=== PATIENT | female | born 1940 | race Caucasian/White ===

== ENCOUNTER 2024-07-07 21:00 | Inpatient (IN) | payer OTHER, SELFPAY ==
[2024-07-06] VITALS (8 sets, daily range): BP systolic 124–157; BP diastolic 79–97; BMI 22.8
--- NOTE | 2024-07-06 19:46 | ED.CVA ---
History of Present Illness
<Bjorn Blackman MD, Resident - Last Filed: 07/06/24 22:18>
General
Chief Complaint: CVA/TIA Symptoms
Source: patient and family
Time Seen by Provider: 07/06/24 19:29
Nursing documentation reviewed up to this point in time: agreed with
Onset of Stroke Symptoms
Onset of symptoms known: Yes
Date of onset of symptoms: 07/06/24
Time of onset of symptoms: 16:00
Time pt last seen normal is known: No
Date last time pt seen normal: 07/06/24
Travel History
Have you traveled to any high risk areas for coronavirus over the past 14 days?: Yes
Have you had any contact with someone who has COVID-19?: No
Do you have any symptoms of coronavirus? Fever > 100 degrees, chills, cough, shortness of breath, sore throat, loss of taste or smell, muscle aches, or headache?: No
Is patient interested in receiving COVID-19 vaccine if eligible?: No
History of Present Illness
History of Present Illness:
84-year-old female with PMH of benign essential hypertension, subclavian steal syndrome, hyperlipidemia, atherosclerotic heart disease, who presented to the emergency department with family due to word finding, right facial droop and slurred speech
that started when she woke up at 4 PM this afternoon. Family reports that patient had a long sleep and woke up with the symptoms. She was in [place] for 4 weeks and flew in yesterday after 4 hours flights. She denies chest pain, shortness of
breath, fever, chills, abdominal pain, nausea, vomiting, diarrhea. She denies any sick contacts, fever or chills.
Past History
<Bjorn Blackman MD, Resident - Last Filed: 07/06/24 22:18>
Past History
ED Past Medical History: HTN and Hypercholesterolemia
Social History
Tobacco: Non-smoker
Alcohol: None
Drug: None
Living: with family
Review of Systems
<Bjorn Blackman MD, Resident - Last Filed: 07/06/24 22:18>
Review of Systems
All Other Systems: ROS reviewed and negative except as documented in HPI and ROS
Phy Exam
<Bjorn Blackman MD, Resident - Last Filed: 07/06/24 22:18>
Physical Exam
Physical Exam:
GENERAL: Alert and oriented x 3, NAD. Afebrile
HEAD: NC/AT
OROPHARYNX: no exudate or ulcers.
EYE: pupils equal and reactive extraocular muscles
NECK: Supple, no significant adenopathy.
CARDIAC: Regular rate and rhythm without any obvious murmurs.
LUNGS: Normal breath sounds,normal-no rhonchi. Not bronchospastic.
ABDOMEN: Soft, NT, ND, no peritoneal signs.
NEUROLOGICAL: Alert and oriented x 3. No focal neurological deficit.
SKIN: Warm and dry, no rash or lesion, no discoloration, skin intact.
MUSCULOSKELETAL: Full range of motion of extremities.
LYMPHATIC:No lymph nodes on his neck or supraclavicular area.
PSYCH: Normal and appropriate interaction.
Neurological Exam
Neurological Exam: alert, oriented x3, no motor deficits and facial droop (right)
NIH Stroke Score
Level of Consciousness: 0 - Alert
LOC questions: 0-Answers both correctly
LOC Commands: 0-Performs both correctly
Best Gaze: 0-Normal
Visual Cuellar: 0=Normal, no visual loss
Facial palsy: 1=Minor paralysis
Motor - Right Arm: 0=No drift 10 seconds
Motor - Left Arm: 0=No drift 10 seconds
Motor - Right Le-No drift 5 seconds
Motor - Left Le-No drift 5 seconds
Limb Ataxia: 0-Absent
Sensation: 0-Normal
Best Language: 0-No aphasia
Dysarthria: 1-Mild slurring
Extinction and Inattention: 0-No abnormality
Total Score:: 2
Cerebellar
Cerebellar Function: normal heel to coley
Musculoskeletal Exam
Musculoskeletal Exam: full ROM and no edema
Scores
<Bjorn Blackman MD, Resident - Last Filed: 07/06/24 22:18>
NIH Stroke Score
Level of Consciousness: 0 - Alert
LOC Questions: 0-Answers both correctly
LOC Commands: 0-Performs both correctly
Best Horizontal Gaze: 0-Normal
Visual Cuellra: 0=Normal, no visual loss
Facial Palsy: 1=Minor paralysis
Motor - Right Arm: 0=No drift 10 seconds
Motor - Left Arm: 0=No drift 10 seconds
Motor - Right Le-No drift 5 seconds
Motor - Left Le-No drift 5 seconds
Limb Ataxia: 0-Absent
Sensation: 0-Normal
Best Language: 0-No aphasia
Dysarthria: 1-Mild slurring
Extinction and Inattention: 0-No abnormality
Total Score:: 2
Stroke Thrombolytic & IAT <6 hours
IAT <6 Hr Inclusion Criteria: Less than or equal to 6 hrs from onset/last seen normal, NIHSS greater than or equal 6 and Age 18 or greater
Course
<Bjorn Blackman MD, Resident - Last Filed: 07/06/24 22:18>
Orders/Labs/Results
Orders:
Orders
07/06/24 19:31
Electrocardiogram (*1) Urgent
Reason for Study: Other
Other Reason for Exam: Possible Stroke
Bedside Glucose- Treatment ONCE
Cardiac Monitoring- Treatment ONCE
EKG- Treatment ONCE
IV Insert/Care/Rem.- Treatment PRN
Vital Signs As Directed
Frequency: Other
Weight As Directed
Frequency: Once
Comment: ZERO STRETCHER SCALE FOR ACCURATE WEIGHT
O2 Therapy [RESP] Urgent
Titrate/Wean O2 to maintain O2 sat greater than (%): 93
Special Instructions: MAINTAIN CONTINUOUS O2 SATS > OR = 93%
07/06/24 19:32
CT HEAD STROKE ALERT W/o Cont Urgent
Reason For Exam: slurred speech
07/06/24 19:33
Complete Blood Count/With Diff Urgent
Comprehensive Metabolic Panel Urgent
PTT Urgent
Prothrombin Time Urgent
Troponin I Urgent
Urinalysis Reflex To Culture Urgent
Date Specimen was Collected: 07/06/24
Time Specimen was Collected: 19:31
Urine Microscopic Reflex Cult Urgent
Urine Culture Urgent
CHARITY Source: U
Specimen Description:
Date Specimen was Collected: 07/06/24
Time Specimen was Collected: 19:31
07/06/24 19:34
CT HEAD/NECK ANG STROKE ALERT Urgent
Comment:
Reason For Exam: acva
07/06/24 19:48
COVID-19 Antigen Urgent
Source: Nasal Swab
07/06/24 20:04
CT Brain Perfusion Urgent
Comment:
Reason For Exam: right facial droop, slurred speech, cva
07/06/24 21:25
Aspirin 325 mg PO NOW STA
07/06/24 21:59
Admit/Transfer Patient As Directed
Co-Sign Provider:
Level of Care: Observation services
Assign to:: Telemetry
Physician / Group: Percy
Diagnosis: Facial Droop
Reason for Telemetry: CVA/TIA
Date to Stop Telemetry: 07/09/24
Time to Stop Telemetry: 11:00
PRN Pain Medication Management As Directed
May give lesser potent ordered pain med per pt: Yes
preference::
Protocol:: Medication orders for pain may be administered in a
manner that supports deferring to patient preference
when the pt is:
- Requesting an ordered lesser potent pain medication.
Least to most potent pain medications are defined
as: acetaminophen < NSAID < tramadol < opioids
(morphine, oxycodone, hydromorphone).
- Requesting a lesser dose of the same medication IF
ORDERED.
- Requesting a less intrusive route of administration
if both routes are prescribed by the provider (PO <
IV).
07/06/24 22:04
Code Status As Directed
Resuscitation Status: Full Code
07/06/24 22:15
0.9% Sodium Chloride 1000 ml [Nss] 1,000 ml IV 100 mls/hr
07/09/24 11:00
DC Protocol for Telemetry ONCE
Abnormal Lab Results
07/06/24
19:33
Hct 47.9 H %
(37.0-47.0)
MPV 11.2 H fL
(7.4-10.4)
Absolute Monos (auto) 1.2 H 10^3/uL
(0.1-0.6)
Lymphocytes % 18.4 L %
(20.5-51.1)
Monocytes % 12.7 H %
(1.7-9.3)
APTT 37.7 H Sec
(23.4-35.0)
BUN 25 H mg/dl
(7-17)
Creatinine 1.3 H mg/dL
(0.6-1.0)
Glucose 110 H mg/dl
(70-99)
Calcium 10.5 H mg/dl
(8.4-10.2)
Leukocyte Esterase Rfl 1+ A
(Negative)
Urine Bacteria (Reflex) Few A
(Negative)
Urine Albumin (Reflex) 2+ A
(Neg - Trace)
07/06/24 19:33
07/06/24 19:33
Vital Signs
Initial and Last Documented VS:
Initial Vital Signs
Temp Pulse Resp BP Pulse Ox
97 F 73 20 157/97 96
07/06/24 19:14 07/06/24 19:14 07/06/24 19:14 07/06/24 19:14 07/06/24 19:14
Last Documented Vital Signs
Temp Pulse Resp BP Pulse Ox
97 F 73 20 157/97 98
07/06/24 19:14 07/06/24 19:14 07/06/24 19:14 07/06/24 19:14 07/06/24 19:14
<Lonny Toney, DO - Last Filed: 07/06/24 20:13>
Orders/Labs/Results
Orders:
Orders
07/06/24 19:31
Electrocardiogram (*1) Urgent
Reason for Study: Other
Other Reason for Exam: Possible Stroke
Bedside Glucose- Treatment ONCE
Cardiac Monitoring- Treatment ONCE
EKG- Treatment ONCE
IV Insert/Care/Rem.- Treatment PRN
Vital Signs As Directed
Frequency: Other
Weight As Directed
Frequency: Once
Comment: ZERO STRETCHER SCALE FOR ACCURATE WEIGHT
O2 Therapy [RESP] Urgent
Titrate/Wean O2 to maintain O2 sat greater than (%): 93
Special Instructions: MAINTAIN CONTINUOUS O2 SATS > OR = 93%
07/06/24 19:32
CT HEAD STROKE ALERT W/o Cont Urgent
Reason For Exam: slurred speech
07/06/24 19:33
Complete Blood Count/With Diff Urgent
Comprehensive Metabolic Panel Urgent
PTT Urgent
Prothrombin Time Urgent
Troponin I Urgent
Urinalysis Reflex To Culture Urgent
Date Specimen was Collected: 07/06/24
Time Specimen was Collected: 19:31
Urine Microscopic Reflex Cult Urgent
Urine Culture Urgent
CHARITY Source: U
Specimen Description:
Date Specimen was Collected: 07/06/24
Time Specimen was Collected: 19:31
07/06/24 19:34
CT HEAD/NECK ANG STROKE ALERT Urgent
Comment:
Reason For Exam: acva
07/06/24 19:48
COVID-19 Antigen Urgent
Source: Nasal Swab
07/06/24 20:04
CT Brain Perfusion Urgent
Comment:
Reason For Exam: right facial droop, slurred speech, cva
07/06/24 21:25
Aspirin 325 mg PO NOW STA
07/06/24 21:59
Admit/Transfer Patient As Directed
Co-Sign Provider:
Level of Care: Observation services
Assign to:: Telemetry
Physician / Group: Percy
Diagnosis: Facial Droop
Reason for Telemetry: CVA/TIA
Date to Stop Telemetry: 07/09/24
Time to Stop Telemetry: 11:00
PRN Pain Medication Management As Directed
May give lesser potent ordered pain med per pt: Yes
preference::
Protocol:: Medication orders for pain may be administered in a
manner that supports deferring to patient preference
when the pt is:
- Requesting an ordered lesser potent pain medication.
Least to most potent pain medications are defined
as: acetaminophen < NSAID < tramadol < opioids
(morphine, oxycodone, hydromorphone).
- Requesting a lesser dose of the same medication IF
ORDERED.
- Requesting a less intrusive route of administration
if both routes are prescribed by the provider (PO <
IV).
07/06/24 22:04
Code Status As Directed
Resuscitation Status: Full Code
07/06/24 22:15
0.9% Sodium Chloride 1000 ml [Nss] 1,000 ml IV 100 mls/hr
07/09/24 11:00
DC Protocol for Telemetry ONCE
Abnormal Lab Results
07/06/24
19:33
Hct 47.9 H %
(37.0-47.0)
MPV 11.2 H fL
(7.4-10.4)
Absolute Monos (auto) 1.2 H 10^3/uL
(0.1-0.6)
Lymphocytes % 18.4 L %
(20.5-51.1)
Monocytes % 12.7 H %
(1.7-9.3)
APTT 37.7 H Sec
(23.4-35.0)
BUN 25 H mg/dl
(7-17)
Creatinine 1.3 H mg/dL
(0.6-1.0)
Glucose 110 H mg/dl
(70-99)
Calcium 10.5 H mg/dl
(8.4-10.2)
Leukocyte Esterase Rfl 1+ A
(Negative)
Urine Bacteria (Reflex) Few A
(Negative)
Urine Albumin (Reflex) 2+ A
(Neg - Trace)
07/06/24 19:33
07/06/24 19:33
Vital Signs
Initial and Last Documented VS:
Initial Vital Signs
Temp Pulse Resp BP Pulse Ox
97 F 73 20 157/97 96
07/06/24 19:14 07/06/24 19:14 07/06/24 19:14 07/06/24 19:14 07/06/24 19:14
Last Documented Vital Signs
Temp Pulse Resp BP Pulse Ox
97 F 73 20 157/97 98
07/06/24 19:14 07/06/24 19:14 07/06/24 19:14 07/06/24 19:14 07/06/24 19:14
<Bjorn Blackman MD, Resident - Last Filed: 07/06/24 22:18>
MDM/Problems Addressed
MDM/Problems Addressed:
84-year-old female who presented to the emergency department with family due to word finding difficulty, right facial drooping and slurred speech that started around 3 and half hours IN [facility]. Most likely etiologies include acute stroke, Ramsay's palsy.
Her last known normal is not clear given that she woke up from sleep with the symptoms. Noncontrast CT scanning of head, with CT angiography pending. We we will also get labs, urinalysis, coagulation studies, and EKG. Given that her last known
normal time is unclear we will call stroke alert. Will keep monitoring closely.
<Bjorn Blackman MD, Resident - Last Filed: 07/06/24 22:18>
*Radiology
Radiology exam reviewed: radiology read reviewed
*Pulse Oximetry
Patient hypoxic: no
*EKG
Interpreted by ED Provider?: Yes
EKG Intrepretation Date: 07/06/24
EKG Intrepretation Time: 19:31
Interpretation: normal
Comparison EKG: no comparison EKG present
Heart Rate: 79
Rate: normal
Rhythm: sinus
[place]: normal axis
Interval: normal interval
QRS Pattern: normal QRS
Ischemia: no ischemia
*Critical Care Note
Total Time (30-74mins, 75-104mins- exclusive of procedures): Not Applicable
<Bjorn Blackman MD, Resident - Last Filed: 07/06/24 22:18>
Update Note
Update Note:
Noncontrast CT scan of head negative for any intracranial abnormalities, but positive for severe chronic ischemic disease. Head and neck CTA positive for severe stenosis of proximal left subclavian artery and left vertebral artery occlusion. Brain
perfusion CT negative for hypoperfused brain penumbra with infarct. Given unclear patient's last known normal, will admit patient for further evaluation and management. Hospitalist service notified.
ED Attending Note
<Bjorn Blackman MD, Resident - Last Filed: 07/06/24 22:18>
-
Portions of this chart may have been created with voice recognition software.� Occasional wrong word or��sound alike� substitutions may have occurred due to the inherent limitations of voice recognition software.
<Lonny Toney DO - Last Filed: 07/06/24 20:13>
ED Attending Note
Patient seen and examined by attending physician: Yes
I performed a history and physical exam of patient and discussed management with resident, I reviewed resident's note and agree with documented findings and plan of care.: Yes
ED Attending Note:
Seen with resident examined independently 84-year-old female companied by her family wake up neurologic symptoms at 4 PM--- right facial droop with slurred speech and word finding difficulty moving all extremities without difficulty,
Discharge Plan
Departure
Patient Disposition: Admit
Date of Disposition: 07/06/24
Time of Disposition: 21:25
Admit to: Telemetry
Presentation/result/management discussed w/ accepting MD/DO: Hospitalist
Patient with high blood pressure during this ER visit?: Yes
Discharge Problem:
Acute CVA (cerebrovascular accident)
Prescriptions:
No Action
atorvastatin [Lipitor] 10 mg Tablet
10 mg PO QPM
amlodipine [Norvasc] 5 mg Tablet
5 mg PO DAILY
alprazolam [Xanax] 0.25 mg Tablet
0.25 mg PO DAILYPRN PRN (Reason: anixety)
pantoprazole [Protonix] 40 mg Tablet,Delayed Release (Dr/Ec)
40 mg PO DAILY
losartan 50 mg Tablet
50 mg PO BID
metoprolol tartrate [Lopressor] 50 mg Tablet
100 mg PO BID
anastrozole 1 mg Tablet
1 mg PO HS
cyanocobalamin (vitamin B-12) 1,000 mcg Tablet
1,000 mcg PO DAILY
aspirin 81 mg Tablet,Delayed Release (Dr/Ec)
81 mg PO DAILY
methimazole [Tapazole] 10 mg Tablet
10 mg PO Q48H
cholecalciferol (vitamin D3) [Vitamin D3] 50 mcg (2,000 unit) Capsule
50 mcg PO DAILY
magnesium oxide 400 mg magnesium Tablet
400 mg PO BID
Referrals:
Rimma Saravia DO [Family Provider] -
Interventions
Interventions:
*Risk Screen - Suicide Last Done: 07/06/24 19:14
*General Assessment Last Done: 07/06/24 19:30
*Neglect/Abuse Screening Last Done: 07/06/24 19:30
*ED COVID-19 Vaccine History Last Done: 07/06/24 19:30
ED- Pulmonary Assessment Last Done: 07/06/24 19:30
ED- Neurological Assessment Last Done: 07/06/24 19:30
ED-Female Genitourinary Assessment Last Done: 07/06/24 19:30
ED- Cardiac Assessment Last Done: 07/06/24 19:30
Discharge Date and Time
Print Language: DJIBOUTIAN
[2024-07-06 19:54] LABS: % Basophils 0.5 % (0-2); % Eosinophils 3.2 % (0-6); % Immature Granulocytes 0.3 % (0-0.5); % Lymphocytes 18.4 % (20.5-51.1); % Monocytes 12.7 % (1.7-9.3); % Neutrophils 64.9 % (42.2-75.2); Absolute Basophils 0.1 10^3/uL (0-0.2); Absolute Eosinophils 0.3 10^3/uL (0-0.7); Absolute Lymphocytes 1.8 10^3/uL (1.2-3.4); Absolute Monocytes 1.2 10^3/uL (0.1-0.6); Absolute Neutrophils 6.2 10^3/uL (1.4-6.5); Hematocrit 47.9 % (37.0-47.0); Hemoglobin 15.9 g/dL (12.0-16.0); Mean Corp Hgb Conc. 33.2 g/dL (33.0-37.0); Mean Corpuscular Hgb 29.9 pg (27.0-31.0); Mean Corpuscular Volume 90.2 fL (81.0-99.0); Mean Platelet Volume 11.2 fL (7.4-10.4); Nucleated Red Blood Cells % 0 %; Platelet Count 332 10^3/uL (130-400); Red Blood Cell Count 5.31 10^6/uL (4.20-5.40); Red Cell Dist. Width 13.7 % (11.5-14.5); White Blood Cell Count 9.6 10^3/uL (4.8-10.8)
[2024-07-06 19:55] LABS: Urine Albumin 2+ (Neg - Trace); Urine Bilirubin Negative (Negative); Urine Character Clear (Clear); Urine Color Yellow; Urine Glucose Negative (Negative); Urine Ketone Negative (Negative); Urine Leukocyte 1+ (Negative); Urine Nitrite Negative (Negative); Urine Occult Blood Negative (Negative); Urine Specific Gravity 1.005 (<1.030); Urine Urobilinogen Negative (Neg - 1+)
[2024-07-06 20:04] LABS: INR 0.84; PT 11.8 Sec (11.4-14.6)
[2024-07-06 20:05] LABS: APTT 37.7 Sec (23.4-35.0)
[2024-07-06 20:07] LABS: ALT (SGPT) 16 U/L (0-35); AST (SGOT) 33 U/L (14-36); Albumin 4.3 g/dl (3.5-5.0); Alkaline Phosphatase 125 U/L (38-126); Blood Urea Nitrogen 25 mg/dl (7-17); Calcium 10.5 mg/dl (8.4-10.2); Carbon Dioxide 27 mmol/L (22-30); Chloride 105 mmol/L (98-107); Estimated Creatinine Clearance 25 ml/min; Glucose 110 mg/dl (70-99); Potassium 4.4 mmol/L (3.5-5.1); Sodium 139 mmol/L (135-145); Total Bilirubin 0.9 mg/dl (0.2-1.3); Total Protein 7.5 g/dl (6.3-8.2); eGFR 41.06
[2024-07-06 20:19] LABS: Troponin I < 0.012 ng/ml
[2024-07-06 20:49] LABS: Urine Bacteria Few (Negative); Urine Red Blood Cell 0-2 /HPF (0-2)
--- NOTE | 2024-07-06 22:08 | HPS.HSE ---
Addendum entered and electronically signed by Atilio Greer DO 07/06/24 23:13:
Patient seen and examined independently. Agree with findings and plan as set forth by Mita Saleh PA-C.
Patient is an 84y F with PMH significant for ASCVD, hypertension and hyperthyroidism who presents to ED complaining of R facial droop that she noted this afternoon. Patient states that she felt well earlier in the day today. She took a long nap
and woke around 3-4PM and noted that her mouth felt strange. She spoke with son via phone who noted that lázaro germain sounded somewhat slurred / thick. Patient presented to the ED for evaluation and was noted to have significant R facial droop. No
extremity weakness or numbness. No vision changes or headache. No prior CVA.
Ass:
R Facial Droop, CVA / TIA
Renal Insufficiency - PEGGY v CKD
ASCVD
Benign Hypertension
Dyslipidemia
Hyperthyroidism
GERD
h/o Breast Cancer
Plan:
Admit for further evaluation and treatment.
Initial CT / CT perfusion unremarkable.
Several areas of stenosis noted on CTA - but no large vessel occlusion, etc.
MRI in AM.
Follow neuro exam overnight for any changes.
Continue DAPT for now.
Neurology eval in AM.
Continue current antihypertensive medication with holding parameters.
Original Note:
Family Physician
-
Family Physician: Rimma Saravia DO
Chief Complaint
-
Facial Droop
History of Present Illness
Patient is an 84 y/o female past medical history of peripheral arterial disease, hypertension, hyperlipidemia, and hyperthyroidism who presents with facial droop. Patient reports she was fine this morning at breakfast. She took a very long nap
this afternoon and upon waking around 3pm-4pm she noticed that her mouth didn't seem right. Her son spoke to her and noticed she didn't sound right on the phone. Upon arrival the emergency department she was noted to have a right facial droop.
Patient denies extremity numbness/tingling or weakness. She denies difficulty with word finding.
Medical History
Past Medical History
Past Medical History: Reports Other
Additional Past Medical History:
Peripheral Arterial Disease s/p Right Lower Ext Stent
Left Subclavian Stenosis
Essential Hypertension
Hyperlipidemia
Osteoarthritis
Spinal Stenosis
GERD
Breast Cancer
Past Surgical History: Reports Other
Additional Past Surgical History:
Right Breast Lumpectomy with Lymph Node Biopsy
Splenectomy
Partial Colon Resection
Right Total Knee Replacement
Social History
Tobacco: Non-smoker
Family History
Family History: Not pertinent
Allergies / Home Medications
Allergies reflects when Allergies were last updated in [email or web address].
Home Medications with original date entered in [email or web address]
Allergy/Medication List:
Allergies
Allergy/AdvReac Type Severity Reaction Status Date / Time
acetaminophen [From Percocet] Allergy Unknown Verified 07/06/24 19:14
egg Allergy Unknown Verified 07/06/24 19:14
lisinopril Allergy Unknown Verified 07/06/24 19:14
oxycodone [From Percocet] Allergy Unknown Verified 07/06/24 19:14
Home Medications
alprazolam 0.25 mg tablet (Xanax) 0.25 mg PO DAILYPRN PRN anixety 07/06/24
amlodipine 5 mg tablet (Norvasc) 5 mg PO DAILY 07/06/24
anastrozole 1 mg tablet 1 mg PO HS 07/06/24
aspirin 81 mg tablet,delayed release 81 mg PO DAILY 07/06/24
atorvastatin 10 mg tablet (Lipitor) 10 mg PO QPM 07/06/24
cholecalciferol (vitamin D3) 50 mcg (2,000 unit) capsule (Vitamin D3) 50 mcg PO DAILY 07/06/24
cyanocobalamin (vitamin B-12) 1,000 mcg tablet 1,000 mcg PO DAILY 07/06/24
losartan 50 mg tablet 50 mg PO BID 07/06/24
magnesium oxide 400 mg PO BID 07/06/24
methimazole 10 mg tablet 10 mg PO Q48H 07/06/24
metoprolol tartrate 50 mg tablet (Lopressor) 100 mg PO BID 07/06/24
pantoprazole 40 mg tablet,delayed release (Protonix) 40 mg PO DAILY 07/06/24
Review of Systems
-
A 12 point ROS was completed and negative except as noted: Yes
Constitutional: Denies Fever or Chills
Respiratory: Denies Cough or Trouble Breathing
Cardiac: Denies Chest Pain or Palpitations
Neurological: Reports See HPI
Physical Exam
Vital Signs
Vital Signs
Temp Pulse Resp BP Pulse Ox
97 F 73 20 157/97 98
07/06/24 19:14 07/06/24 19:14 07/06/24 19:14 07/06/24 19:14 07/06/24 19:14
Physical Exam
General: Comfortable and Conversant
HEENT: Anicteric and Moist mucous membranes
Respiratory: Clear and Non Labored Respirations
Cardiac: S1/S2 and Regular Rhythm
GI: Soft and Non Tender
Rectal: Deferred by Provider
Musculoskeletal: No Clubbing, No Cyanosis and No Edema
Skin: Warm and Dry
Neuro: Awake, Alert, Oriented, No Motor Deficits, Facial Droop (Right ) and Other (Tongue deviation to the right)
Laboratory Results
-
07/06/24 19:33
07/06/24 19:33
Laboratory Results
PT 11.8 Sec (11.4-14.6) 07/06/24 19:33
INR 0.84 07/06/24 19:33
APTT 37.7 Sec (23.4-35.0) H 07/06/24 19:33
Total Bilirubin 0.9 mg/dl (0.2-1.3) 07/06/24 19:33
AST 33 U/L (14-36) 07/06/24 19:33
ALT 16 U/L (0-35) 07/06/24 19:33
Alkaline Phosphatase 125 U/L (38-126) 07/06/24 19:33
Troponin I < 0.012 ng/ml 07/06/24 19:33
Data Reviewed
-
CT Scan: Report Reviewed by me
Lab Data: Labs Reviewed by me
Old Records: Reviewed
Impression/Plan
-
Right Facial Droop with Tongue Deviation, high clinical concern for acute stroke
-Consult Neurology
-Check Brain MRI
-Add Plavix to aspirin
-Increase Lipitor 20mg HS
-Check Lipid Panel and HgbA1c
-Monitor Neuro-checks
Mild Hypercalcemia and Elevated Creatinine, unknown baseline
-Suspect patient is slightly volume deplete
-Give 1L NSS overnight
-Recheck labs in AM
Peripheral Arterial Disease s/p Right Lower Ext Stent
Left Subclavian Stenosis
-Continue aspirin
Essential Hypertension
-Continue amlodipine, metoprolol and losartan
Hyperlipidemia
-Continue Lipitor
Hyperthyroidism
-CT scan notes multi-nodular goiter - Follow-up as outpatient
-Continue methimazole
GERD
-Continue Protonix
Hx Breast Cancer s/p Right Lumpectomy, Chemotherapy and Radiation
-Continue Anastrozole
DVT proph: SCDs
Code Status: Full Code
[2024-07-06] MEDS: ASPIRIN 325 MG PO (23:03)
[2024-07-06 23:29] LABS: COVID-19 Antigen Negative (Negative)
[2024-07-06] MEDS: NSS 1000 IV (23:48)
[2024-07-07] VITALS (8 sets, daily range): BP systolic 129–189; BP diastolic 83–97; PULSE 69; O2SAT 95; BMI 22.2
[2024-07-07] MEDS: ARIMIDEX 1 MG PO ×2 (00:59→21:40)
--- NOTE | 2024-07-07 01:13 | PTCARENOTE ---
Received pt from ED @ 0040. Pt AAOx3, ambulatory in room, VSS. Oriented to room, call [facility] and plan of care.
[2024-07-07] MEDS: TYLENOL 650 MG PO (07:20)
[2024-07-07 07:24] LABS: Hematocrit 38.7 % (37.0-47.0); Hemoglobin 13.1 g/dL (12.0-16.0); Mean Corp Hgb Conc. 33.9 g/dL (33.0-37.0); Mean Corpuscular Hgb 30.3 pg (27.0-31.0); Mean Corpuscular Volume 89.6 fL (81.0-99.0); Mean Platelet Volume 11.8 fL (7.4-10.4); Platelet Count 301 10^3/uL (130-400); Red Blood Cell Count 4.32 10^6/uL (4.20-5.40); Red Cell Dist. Width 13.8 % (11.5-14.5); White Blood Cell Count 10.3 10^3/uL (4.8-10.8)
[2024-07-07] MEDS: PROTONIX 40 MG PO (07:29)
[2024-07-07] MEDS: PLAVIX 75 MG PO (07:29)
[2024-07-07] MEDS: ASPIR LOW (ENTERIC COATED) 81 MG PO (07:29)
[2024-07-07 08:06] LABS: Blood Urea Nitrogen 17 mg/dl (7-17); Calcium 9.4 mg/dl (8.4-10.2); Carbon Dioxide 23 mmol/L (22-30); Chloride 106 mmol/L (98-107); Estimated Creatinine Clearance 30 ml/min; Glucose 86 mg/dl (70-99); HDL Cholesterol 59 mg/dl; LDL Cholesterol, Calculated 110 mg/dl; Magnesium 2.2 mg/dl (1.6-2.3); Potassium 4.2 mmol/L (3.5-5.1); Sodium 139 mmol/L (135-145); Total Cholesterol 185 mg/dl (50-199); Triglyceride 80 mg/dl (10-149); Very Low Density Lipoprotein 16 mg/dl (0-30); eGFR 50.17
[2024-07-07] MEDS: COZAAR 50 MG PO ×2 (08:24→20:24)
[2024-07-07] MEDS: NORVASC 5 MG PO (08:25)
[2024-07-07] MEDS: LOPRESSOR 100 MG PO ×2 (08:25→20:24)
--- NOTE | 2024-07-07 08:48 | CON.NEURO ---
Neuro Assessment/Plan
Assessment
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
Differential diagnosis includes acute onset ischemic stroke/TIA; MRI of brain demonstrates 2 left frontal acute ischemic strokes
Plan
Agree with addition of clopidogrel to the patient's routine outpatient aspirin dosing, for 21 days, then return to aspirin
Advance the patient's atorvastatin from 10 mg as outpatient to 80 mg despite the patient's advanced age
Check MRI of brain as planned, done
Rehab evaluations
Goal of normotension
Goal of normoglycemia
Provide medical educational materials
DVT prophylaxis
Will follow pending results
Consultation
Order
Date of Consultation: 07/07/24
Requesting Provider: Hospitalists
Reason for Consult: Aphasia
Subjective/Objective
Subjective Data
Date of Service: July 07, 2024
Right-handed
Patient presented to this hospital's emergency department with acute onset aphasia, right facial droop, and slurred speech. The patient returned from [place] 1 day prior to presentation to this hospital's emergency department yesterday. She was in
her usual state of health at that time and had no other medical changes.
Patient awoke from a nap on the day of admission with awareness of right sided facial sensation change. She then attempted to speak with her son and found that her words were not clear prompting presentation to this hospital's emergency department.
The patient has had a prior history of Ramsay's palsy involving the right side and had marked improvement of same until awareness of the right sided facial sensation change which she described as a numbness. The sense of numbness has mildly reduced
since its onset although she reports continued difficulty with clarity of speech. There were no other associated symptoms. There were no known modifying factors.
Objective Data
Vital Signs
Temp Pulse Resp BP Pulse Ox
36.5 C 94 18 152/97 100
07/07/24 00:42 07/07/24 08:24 07/07/24 00:42 07/07/24 08:24 07/07/24 00:42
Lab Results
07/07/24 06:01
07/07/24 06:01
PT 11.8 Sec (11.4-14.6) 07/06/24 19:33
INR 0.84 07/06/24 19:33
APTT 37.7 Sec (23.4-35.0) H 07/06/24 19:33
Sodium 139 mmol/L (135-145) 07/07/24 06:01
Potassium 4.2 mmol/L (3.5-5.1) 07/07/24 06:01
BUN 17 mg/dl (7-17) 07/07/24 06:01
Glucose 86 mg/dl (70-99) 07/07/24 06:01
Calcium 9.4 mg/dl (8.4-10.2) 07/07/24 06:01
LDL Cholesterol, Calc 110 mg/dl 07/07/24 06:01
Patient Allergies
acetaminophen [From Percocet] Allergy (Verified 07/06/24 19:14)
Unknown
egg Allergy (Verified 07/06/24 19:14)
Unknown
lisinopril Allergy (Verified 07/06/24 19:14)
Unknown
oxycodone [From Percocet] Allergy (Verified 07/06/24 19:14)
Unknown
CVA Assessment
Onset of Stroke Symptoms
Onset of symptoms known: Yes
Date of onset of symptoms: 07/06/24
Time of onset of symptoms: 15:00
Time pt last seen normal is known: Yes
Date last time pt seen normal: 07/06/24
Time last time pt seen normal: 10:30
NIH Stroke Score
Level of Consciousness: 0 - Alert
LOC Questions: 0-Answers both correctly
LOC Commands: 0-Performs both correctly
Best Horizontal Gaze: 0-Normal
Visual Cuellar: 0=Normal, no visual loss
Facial Palsy: 0=Normal, symmetrical
Motor - Right Arm: 0=No drift 10 seconds
Motor - Left Arm: 0=No drift 10 seconds
Motor - Right Le-No drift 5 seconds
Motor - Left Le-No drift 5 seconds
Limb Ataxia: 0-Absent
Sensation: 0-Normal
Best Language: 0-No aphasia
Dysarthria: 1-Mild slurring
Extinction and Inattention: 0-No abnormality
Total Score:: 1
Tenecteplase Contraindications
Inclusion and Exclusion criteria reviewed: Yes
Review of Systems
-
History Source: Patient
All other systems: Reviewed and negative
EENT: Negative Blurry Vision or Swallowing Difficulty
Respiratory: Negative Trouble Breathing
Cardiac: Negative Chest Pain
Abdomen/GI: Negative Incontinence of Stool
Musculoskeletal: Back Pain; Negative Neck Pain
Neuro: Headache (at time of onset, few hours), Weakness (right facial weakness) and Other (gait dysfunction); Negative Dizzy or Speech Problem
Physical Exam
-
General: No Apparent Distress and Appears Stated Age
Eyes: OU Absent Papilledema, Round OU, [place] Conjunctivae and No Ptosis
HEENT: Anicteric and Moist Mucous Membranes
Neck: Full Range of Motion
Respiratory: No Dyspnea
Cardiac: No JVD
GI: Non-distended
Skin: Unremarkable
Extremities: No Clubbing, No Cyanosis and No Edema
Psych: Intact Judgement/Insight
Extended Neurological Exam
Mood & Affect: Mood Unremarkable and Affect Unremarkable
Attention Span & Concentration: Awake, Alert, Interactive and No Difficulty with 2 Step Request
Memory: Unremarkable
Tremor: Hand Tremor Absent and Head Tremor Absent
Speech: Quantity Unremarkable and Dysarthric
Cranial Nerve II: Left Eye: Pupillary Reactivity Unremarkable, Pupillary Size Unremarkable and Visual Cuellar Intact
Cranial Nerve II: Right Eye: Pupillary Reactivity Unremarkable, Pupillary Size Unremarkable and Visual Cuellar Intact
Cranial Nerves III, IV, : Extraocular Movement: Extraocular Movement Full in all Directions
Cranial Nerve VII: Facial Symmetry: Reduced (Right face with minimal reduction right nasolabial fold and intact forehead movement)
Cranial Nerve VIII: Hearing: Unremarkable Hearing to Normal Conversational Volume
Cranial Nerves IX, X: Palate Movement: Palate Elevation Symmetric
Cranial Nerve XI: Shoulder Shrug: Unremarkable
Cranial Nerve XII: Tongue Protusion: Midline
Muscle Strength, Overall: Full Throughout
Muscle Bulk & Tone: Bulk Unremarkable and Tone Unremarkable
Pronator Drift: No Drift in Upper Extremities
Deep Tendon Reflexes: Trace Throughout
Touch Sensation: Unremarkable
Coordination: [id number] Testing Unremarkable
Babinski Sign: Absent Bilaterally
Data Reviewed
-
CT-A: Report Reviewed
CT-Perfusion: Report Reviewed and Image Reviewed
CT Head: Report Reviewed
Labs: Report Reviewed
Lipid Profile: Report Reviewed
Reviewed with: Physician
Old Records: Summarized
Medications
-
Active Medications
Generic Name Dose Route Start Last Admin
Trade Name Freq PRN Reason Stop Dose Admin
Acetaminophen 650 mg 07/07/24 00:27
Acetaminophen 650 Mg Rectal Suppository RECTAL 08/04/24 00:26
Q4HPRN PRN
HAIRSTON, mild pain, or temp >100.4F
Acetaminophen 650 mg 07/07/24 00:27 07/07/24 07:20
Acetaminophen 325 Mg Tablet PO 08/04/24 00:26 650 mg
Q4HPRN PRN Administration
HAIRSTON, mild pain, or temp >100.4F
Amlodipine Besylate 5 mg 07/07/24 08:00 07/07/24 08:25
Amlodipine 5 Mg Tablet PO 08/04/24 07:59 5 mg
DAILY FITZ Administration
Anastrozole 1 mg 07/07/24 00:27 07/07/24 00:59
Anastrozole 1 Mg Tablet PO 08/04/24 00:26 1 mg
HS FITZ Administration
Aspirin 81 mg 07/07/24 08:00 07/07/24 07:29
Aspirin 81 Mg (Enteric Coated) Tablet PO 08/04/24 07:59 81 mg
DAILY FITZ Administration
Atorvastatin Calcium 20 mg 07/07/24 18:00
Atorvastatin (Lipitor) 20 Mg Tablet PO 08/04/24 17:59
QPM FITZ
Clopidogrel Bisulfate 75 mg 07/07/24 08:00 07/07/24 07:29
Clopidogrel 75 Mg Tablet PO 08/04/24 07:59 75 mg
DAILY FITZ Administration
Losartan Potassium 50 mg 07/07/24 08:00 07/07/24 08:24
Losartan 50 Mg Tablet PO 08/04/24 07:59 50 mg
BID FITZ Administration
Methimazole 10 mg 07/07/24 01:00
Methimazole 5 Mg Tablet PO 08/04/24 00:59
Q48H FITZ
Metoprolol Tartrate 100 mg 07/07/24 08:00 07/07/24 08:25
Metoprolol 50 Mg Regular Release Tablet PO 08/04/24 07:59 100 mg
BID FITZ Administration
Pantoprazole Sodium 40 mg 07/07/24 08:00 07/07/24 07:29
Pantoprazole 40 Mg Delayed Release Tablet PO 08/04/24 07:59 40 mg
DAILY FITZ Administration
Sodium Chloride 0 flush 07/07/24 01:00
Sodium Chloride 0.9% (Flush) Syringe IV 08/04/24 00:59
PER PROTOCOL FITZ
Home Medications
�Medication �Instructions �Recorded
alprazolam 0.25 mg tablet (Xanax) 0.25 mg PO DAILYPRN PRN anixety 07/06/24
amlodipine 5 mg tablet (Norvasc) 5 mg PO DAILY 07/06/24
anastrozole 1 mg tablet 1 mg PO HS 07/06/24
aspirin 81 mg tablet,delayed 81 mg PO DAILY 07/06/24
release
atorvastatin 10 mg tablet (Lipitor) 10 mg PO QPM 07/06/24
cholecalciferol (vitamin D3) 50 50 mcg PO DAILY 07/06/24
mcg (2,000 unit) capsule (Vitamin
D3)
cyanocobalamin (vitamin B-12) 1,000 mcg PO DAILY 07/06/24
1,000 mcg tablet
losartan 50 mg tablet 50 mg PO BID 07/06/24
magnesium oxide 400 mg PO BID 07/06/24
methimazole 10 mg tablet 10 mg PO Q48H 07/06/24
metoprolol tartrate 50 mg tablet 100 mg PO BID 07/06/24
(Lopressor)
pantoprazole 40 mg tablet,delayed 40 mg PO DAILY 07/06/24
release (Protonix)
Past History
Past History
ED Past Medical History: Cancer (Breast, right), GERD, HTN, Hypercholesterolemia, Other (Subclavian steal syndrome, peripheral vascular disease, lower GI bleed, colonic polyposis, osteoarthritis) and Other (Ramsay's palsy)
ED Past Surgical History: Bowel resection (Partial colectomy), Orthopedic (Right total knee replacement) and Other (Splenectomy, right lumpectomy with chemotherapy and radiation 2015; multiple percutaneous femoral interventions; right femoral
endarterectomy)
Social History
Tobacco: Non-smoker
Alcohol: None
Drug: None
Living: with family
[2024-07-07 10:08] LABS: Glycohemoglobin (HgbA1c) 5.3 % (4.0-5.6)
[2024-07-07 12:16] LABS: Free T4 1.54 ng/dl (0.78-2.19)
--- NOTE | 2024-07-07 12:28 | W.PN.HOSP.TC ---
Today's Communication/Plan
-
pt/ot/st evaluation
f/u mri brain report
await [facility] sx eval
Assessment / Plan
Assessment / Plan
CTA h&n
1. No high-grade stenosis or occlusion in the [place] of [place].
2. 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
3. Bilateral carotid bifurcation atherosclerosis with 50% stenosis of the right carotid bulb and 40% stenosis of the left carotid bulb. Correlation with a cerebrovascular ultrasound can be considered.
4. Severe stenosis of the proximal left subclavian artery.
5. Enlarged multinodular thyroid gland. Recommend a follow-up outpatient thyroid ultrasound if not previously performed.
6. 1.6 cm peribronchial opacity in the right upper lobe, which could represent scarring or pneumonia. Lung cancer is not excluded. Correlation with outside imaging of the chest would be helpful if available. Otherwise recommend follow-up imaging of
the chest after treatment.

1. Acute CVA
-Patient presented with new right-sided facial droop
-CT head negative
-CTA head and neck findings as above
-MRI brain official read pending -images reviewed and patient have left-sided stroke
-Neurology evaluated and recommended patient to be maintained on aspirin/Plavix for 21 days followed by aspirin, atorvastatin dose to be increased to 80mg
-PT/OT/ST evluation pending
2. Left subclavian artery stenosis
-Incidental finding on CTA head and neck
-Patient denies of having any left upper extremity symptoms of cold/paresthesia
-Vascular surgery has been involved
3. Bilateral carotid arterial stenosis
-50% on right and 40% on left
4. Multiple thyroid nodules
Hyperthyroidism
-Followed by Dr. Lujan, and has been deemed benign
-TSH < 0.02, FT4 1.54, Free T3 15
-will need to f/u with endocrinology, already on methimazole therapy
5. Peribronchial opacity in right upper lobe
-Patient has history of [id number] smoking
-Have been following with physician relations specialist at [facility], last visit 1 year back
-Recommended patient to see physician relations specialist for further evaluation.
Former smoker
Left shoulder fracture and hardware placement
Left collar bone fracture
Right TKR
PAD
h/o RLE stenting
HLD
Right Breast Lumpectomy with Lymph Node Biopsy
Splenectomy
Partial Colon Resection
DVT PPX - lovenox
Full code
Total time spent _ 53mins
Anticipated Discharge: Within 24 hours
Subjective/Interval History
-
Date of Service: July 07, 2024
Persistent right facial droop
No new neurological findings
Objective Data
-
Labs:
Laboratory Results
07/07/24
06:01
WBC 10.3
Hgb 13.1
Hct 38.7
Plt Count 301
Sodium 139
Potassium 4.2
Chloride 106
Carbon Dioxide 23
BUN 17
Creatinine 1.1 H
Glucose 86
Calcium 9.4
Vital Signs:
Vital Signs
Temp Pulse Resp BP Pulse Ox
98.3 F 94 18 152/97 95
07/07/24 07:00 07/07/24 08:24 07/07/24 07:00 07/07/24 08:24 07/07/24 07:00
Review of Systems
-
Respiratory: Reports No Symptoms
Cardiac: Reports No Symptoms
Abdomen/GI: Reports No Symptoms
Physical Exam
-
General: Comfortable
HEENT: Other (carotid bruit + on left); Negative Oxygen
Respiratory: Clear to Auscultation
Cardiac: Regular Rhythm and S1/S2; Negative Murmur or Rub
GI: Soft, Nontender and Nondistended
Musculoskeletal: No Edema
Neuro: Awake, Alert, Oriented and Facial Droop (Right sided)
Psych: Calm
[2024-07-07 12:30] LABS: TSH < 0.02 uIU/ml (0.47-4.68)
--- NOTE | 2024-07-07 14:53 | PTOTSP ---
speech therapy
Presentation: Patient's speech was mostly intelligible with some difficulty related to her apparent dysarthria (slurred speech, imprecise consonant production) and possible expressive aphasia (word finding difficulty). Per patient her speech has
improved but it is not at baseline.
Swallowing Function: Patient was observed with several bites of regular consistency solids and straw sips of thin liquids in which patient appeared to tolerate as she did not exhibit any overt clinical s/sx of aspiration. Despite patient's right
sided facial droop, patient demonstrated no difficulty pulling from the straw, utilizing an oral seal with boluses, or difficulty with manipulating solids.
Given the above, recommend continuation of regular consistency solids and thin liquids.
Recommendations:
1) Regular consistency solids and thin liquids
2) aspiration and reflux precautions
3) medications as tolerated
4) consideration of further speech and language evaluation
5) consideration of outpatient or homecare speech service; pending dc plans
Plan: ADMIN SECRETARY will continue to follow to ensure tolerance and to assess speech/ language function; pending hospitalization.
--- NOTE | 2024-07-07 15:18 | CM ---
sterile processing manager reviewed patient's chart and met with patient and patient's son lives with her in a one story home with 4 steps to enter, patient is independent with adl's and ambulation, no dme, patient drives, home when stable, no needs.
PCP: Rimma Saravia.
Pharmacy; [facility].
Plan; Home when stable.
[2024-07-07] MEDS: LIPITOR 80 MG PO (17:45)
[2024-07-07] MEDS: XANAX 0.25 MG PO (21:40)
[2024-07-08 03:30] VITALS: BP 151/85
[2024-07-08 07:42] VITALS: BP 156/92
[2024-07-08] MEDS: TAPAZOLE 10 MG PO (08:23)
[2024-07-08] MEDS: LOPRESSOR 100 MG PO ×2 (08:23→20:02)
[2024-07-08] MEDS: PROTONIX 40 MG PO (08:24)
[2024-07-08] MEDS: PLAVIX 75 MG PO (08:24)
[2024-07-08] MEDS: NORVASC 5 MG PO (08:24)
[2024-07-08] MEDS: COZAAR 50 MG PO ×2 (08:24→20:02)
[2024-07-08] MEDS: ASPIR LOW (ENTERIC COATED) 81 MG PO (08:24)
[2024-07-08 11:14] VITALS: BP 171/84
[2024-07-08] MEDS: TYLENOL 650 MG PO (11:23)
[2024-07-08 15:20] VITALS: BP 150/65
--- NOTE | 2024-07-08 15:32 | W.PN.HOSP.TC ---
Today's Communication/Plan
-
Carotid ultrasound
DAPT
PT evaluation
Assessment / Plan
Assessment / Plan
Impression:
Acute left hemispheric CVA.
Left subclavian artery stenosis by imaging
Bilateral carotid artery stenosis
Multiple thyroid nodules by imaging
Bronchial opacity at the right upper lobe by imaging.
Other conditions:
Former smoker
Left shoulder fracture and hardware placement
Left collar bone fracture
Right TKR
PAD
h/o RLE stenting
HLD
Right Breast Lumpectomy with Lymph Node Biopsy
Splenectomy
Partial Colon Resection
Plan
1. Acute CVA
-Patient presented with new right-sided facial droop
-CT head negative
-MRI: 2 focal areas of abnormal restricted diffusion compatible with regions of acute to subacute infarction.
-CTA 1. No high-grade stenosis or occlusion in the [place] of [place].
2. 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
3. Bilateral carotid bifurcation atherosclerosis with 50% stenosis of the right carotid bulb and 40% stenosis of the left carotid bulb. Correlation with a cerebrovascular ultrasound can be considered.
4. Severe stenosis of the proximal left subclavian artery.
5. Enlarged multinodular thyroid gland. Recommend a follow-up outpatient thyroid ultrasound if not previously performed.
6. 1.6 cm peribronchial opacity in the right upper lobe, which could represent scarring or pneumonia. Lung cancer is not excluded. Correlation with outside imaging of the chest would be helpful if available. Otherwise recommend follow-up imaging of
the chest after treatment.
So far with no evidence for arrhythmia
Echocardiogram 03/21 with preserved biventricular function. Moderate MR. Mild aortic stenosis and aortic insufficiency
Given PAD as well as CTA imaging. Will proceed with carotid ultrasound to correlate for degree of internal carotid artery disease.
Consider vascular surgery consultation.
Initiated on DAPT for 21 days. Initiated on PPI for GI prophylaxis
Continue high intensity statin
Physical/Occupational Therapy evaluation for discharge planning
2. Left subclavian artery stenosis
-Incidental finding on CTA head and neck
-Patient denies of having any left upper extremity symptoms of cold/paresthesia
3. Multiple thyroid nodules
Hyperthyroidism
-Followed by Dr. Lujan, and has been deemed benign
-TSH < 0.02, FT4 1.54, Free T3 15
-will need to f/u with endocrinology, already on methimazole therapy
4. Peribronchial opacity in right upper lobe
-Patient has history of [id number] smoking
-Have been following with block cutter at [facility], last visit 1 year back
-Recommended patient to see block cutter for further evaluation.
DVT PPX - lovenox
Full code
Anticipated Discharge: 24 - 48 hours
Subjective/Interval History
-
Date of Service: July 08, 2024
Objective Data
-
Vital Signs:
Vital Signs
Temp Pulse Resp BP Pulse Ox
98.4 F 82 18 150/65 96
07/08/24 15:20 07/08/24 15:20 07/08/24 15:20 07/08/24 15:20 07/08/24 15:20
I&O
07/07/24 07/08/24 07/09/24
06:59 06:59 06:59
Intake Total 480 / 480
Balance 480 / 480
Physical Exam
-
General: Well Developed and No Apparent Distress
HEENT: Normocephalic, Atraumatic and Moist Mucous Membranes
Respiratory: Clear to Auscultation
Cardiac: Regular Rhythm and S1/S2; Negative Murmur, Rub or Gallop
GI: Soft, Nontender, Nondistended and Normal Bowel Sounds; Negative Organomegaly
Rectal: Deferred by Provider
Musculoskeletal: No Clubbing, No Cyanosis and No Edema
Skin: Negative Rash
Neuro: Awake, Alert, Oriented, AO x 3 and Other (Facial droop right. Slurred speech.)
[2024-07-08] MEDS: LIPITOR 80 MG PO (17:14)
[2024-07-08 19:55] VITALS: BP 194/93
[2024-07-08] MEDS: ARIMIDEX 1 MG PO (21:39)
[2024-07-08] MEDS: XANAX 0.25 MG PO (21:39)
[2024-07-08 23:30] VITALS: BP 177/87
[2024-07-09 03:14] VITALS: BP 159/84
[2024-07-09 07:37] VITALS: BP 130/69
[2024-07-09] MEDS: NORVASC 5 MG PO (07:48)
[2024-07-09] MEDS: PLAVIX 75 MG PO (07:49)
[2024-07-09] MEDS: ASPIR LOW (ENTERIC COATED) 81 MG PO (07:49)
[2024-07-09] MEDS: COZAAR 50 MG PO (07:49)
[2024-07-09] MEDS: PROTONIX 40 MG PO (07:49)
[2024-07-09] MEDS: LOPRESSOR 100 MG PO (07:49)
[2024-07-09 10:55] VITALS: BP 162/78; PULSE 65; O2SAT 96
[2024-07-09 12:01] VITALS: BP 149/82
--- NOTE | 2024-07-09 12:08 | CM ---
Addendum entered by Cricket Hernandez 07/09/24 12:23:
Per [facility] liaison, [facility] not service pt's area
Spoke w/ [facility], confirmed [facility] does service [place] area and [place] office will accept pt
[facility] referral placed in [facility]
Updated pt and son who is agreeable to [facility]

Original Note:
Chart reviewed for d/c planning. Per chart, therapy recommending OP therapy
Per hospitalist, pt should be ready for d/c
Met w/ pt bedside w/ son regarding d/c recommendation. Pt would like home PT instead of OP therapy. Pt agreeable to [facility]
IMM reviewed, pt given copy, copy placed in chart
[facility] referral placed in [facility]
Updated hospitalist for VN/PT orders
Plan: Home w/ [facility]
--- NOTE | 2024-07-09 12:54 | W.DS.TRANS ---
DC Summary - Jerker
-
Discharge Instructions:
Discharge Diagnosis/Procedures Impression:
Acute left hemispheric CVA.
Left subclavian artery stenosis by imaging
Bilateral carotid artery stenosis
Multiple thyroid nodules by imaging
Bronchial opacity at the right upper lobe by
imaging.
Other conditions:
Former smoker
Left shoulder fracture and hardware placement
Left collar bone fracture
Right TKR
PAD
h/o RLE stenting
HLD
Right Breast Lumpectomy with Lymph Node Biopsy
Splenectomy
Partial Colon Resection
Diet Low Cholesterol
Instructions:
Stand-Alone Forms:
Changes to Home Medications: Yes
Discharge Medications:
DC Medications w/original date entered in [facility]
alprazolam 0.25 mg tablet (Xanax) 0.25 mg PO DAILYPRN PRN anixety 07/06/24
amlodipine 5 mg tablet (Norvasc) 5 mg PO DAILY 07/06/24
anastrozole 1 mg tablet 1 mg PO HS 07/06/24
aspirin 81 mg tablet,delayed release 81 mg PO DAILY 07/06/24
cholecalciferol (vitamin D3) 50 mcg (2,000 unit) capsule (Vitamin D3) 50 mcg PO DAILY 07/06/24
cyanocobalamin (vitamin B-12) 1,000 mcg tablet 1,000 mcg PO DAILY 07/06/24
losartan 50 mg tablet 50 mg PO BID 07/06/24
magnesium oxide 400 mg PO BID 07/06/24
methimazole 10 mg tablet 10 mg PO Q48H 07/06/24
metoprolol tartrate 50 mg tablet (Lopressor) 100 mg PO BID 07/06/24
pantoprazole 40 mg tablet,delayed release (Protonix) 40 mg PO DAILY 07/06/24
atorvastatin 80 mg tablet 80 mg PO QPM #30 tabs 07/09/24
clopidogrel 75 mg tablet 75 mg PO DAILY #20 tabs 07/09/24
Home Medication Changes
DAPT and high intensity statin inited
Pending Results: No
== END 2024-07-09 14:00 | disposition home health service (06) | DRG 66 ==
LOC: 4 WEST ACU 21:00
PROVIDERS: Physician Assistant Medical; Student in an Organized Health Care Education/Training Program; ADMITTING PHYSICIAN Hospitalist; ATTENDING PHYSICIAN Internal Medicine; CONSULT PHYSICIAN Psychiatry & Neurology Neurology; EMERGENCY PHYSICIAN Emergency Medicine; FAMILY PHYSICIAN Family Medicine
DX: I63.89 Other cerebral infarction (principal); I65.02 Occlusion and stenosis of left vertebral artery; R47.01 Aphasia; G51.0 Bell's palsy; I25.10 Atherosclerotic heart disease of native coronary artery without angina pectoris; E05.20 Thyrotoxicosis with toxic multinodular goiter without thyrotoxic crisis or storm; K21.9 Gastro-esophageal reflux disease without esophagitis; Z85.3 Personal history of malignant neoplasm of breast; N28.9 Disorder of kidney and ureter, unspecified; I73.9 Peripheral vascular disease, unspecified; E78.00 Pure hypercholesterolemia, unspecified; I70.8 Atherosclerosis of other arteries; M19.90 Unspecified osteoarthritis, unspecified site; M48.00 Spinal stenosis, site unspecified; I65.23 Occlusion and stenosis of bilateral carotid arteries; Z86.0100 Personal history of colon polyps, unspecified; Z90.49 Acquired absence of other specified parts of digestive tract; Z92.3 Personal history of irradiation; Z96.651 Presence of right artificial knee joint; Z90.81 Acquired absence of spleen; Z87.891 Personal history of nicotine dependence; Z79.82 Long term (current) use of aspirin; E83.52 Hypercalcemia; Z79.811 Long term (current) use of aromatase inhibitors; Z11.52 Encounter for screening for COVID-19; R91.8 Other nonspecific abnormal finding of lung field
CPT/HCPCS: 0042T; 70450; 70496; 70498; 70551; 80048; 80053; 80061; 81003; 81015; 83036; 83735; 84439; 84443; 84481; 84484; 85025; 85027; 85610; 85730; 87086; 87811; 92610; 93005; 93880; 93922; 93925; 97116; 97162; 97166; 97530; 99285; Q9967

== ENCOUNTER 2024-08-18 11:42 | Emergency (ER) | payer OTHER, SELFPAY ==
[2024-08-18 11:46] VITALS: BP 181/75
[2024-08-18 12:08] VITALS: BMI 22.7
--- NOTE | 2024-08-18 12:19 | ED.GENMED ---
History of Present Illness
General
Chief Complaint: Circulation Problem
Time Seen by Provider: 08/18/24 12:19
History of Present Illness
History of Present Illness:
TIME OF INITIAL ENCOUNTER: 12:25 PM
HPI: Earlier today, the patient had abrupt onset numbness and evidence of cyanosis at the mid/distal left foot. More recently all of the symptoms have resolved. She never had any pain. She has known vascular disease after CVA evaluation from last
month. She is continued on aspirin and Plavix.
EXAM:
GENERAL: Well appearing in no distress
HEENT: Moist oral mucosa
CARDIOVASCULAR: 1 out of 6 murmur, normal heart rate, regular rhythm, No chest wall tenderness
PULMONARY: No respiratory distress, breath sounds are clear and equal
ABDOMEN: Soft with no peritoneal signs, no tenderness
NEUROLOGIC: Excellent strength all extremities, no coordination deficits
PSYCHIATRIC: Appropriate mental status, normal insight and judgement
EXTREMITIES: Bounding femoral pulses. Easily dopplerable popliteal pulses. The right (PT and DP (foot) pulses were easily dopplerable. The left PT and DP pulses were faintly dopplerable.
SKIN: No rash, no lesions, significant superficial varicosities noted
NUMBER AND COMPLEXITY OF PROBLEMS ADDRESSED AT THE ENCOUNTER
� Chronic conditions affecting care: CVA, peripheral vascular disease
� Acute Exacerbation and/or Progression of Chronic Illness: This is an acute problem
� Differential Diagnosis includes: Peripheral arterial disease, arterial stenosis, Raynaud's, small vessel disease
AMOUNT AND/OR COMPLEXITY OF DATA TO BE REVIEWED AND ANALYZED
� I performed an independent evaluation of and my interpretation is:
EKG:
CT:
X-rays:
Laboratory Studies: None needed
Other:
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
� Clinical information was obtained by an independent historian: I spoke to son at bedside
� Prescriptions/Medications Considered but not given:
� Further testing considered but not performed: Considered vascular imaging however recommended against by vascular surgery as patient is asymptomatic currently
RISK OF COMPLICATIONS AND/OR MORBIDITY OR MORTALITY OF PATIENT MANAGEMENT
� Social determinants of health affecting care: Lives at home
� Discussion with other providers: I spoke to the on-call vascular surgeon, Dr. Glynn, who just recommends follow-up with Dr. Infante and no additional imaging at this time
� Escalation of care including admission/observation vs risk of discharge considered: The patient has remained asymptomatic while in the emergency department. She is to follow-up with Dr. Infante. For now, I recommend that she
continues DAPT and she is still taking the Plavix
ANY OTHER UPDATES:
Past History
Past History
ED Past Medical History: Cancer (Breast, right), GERD, HTN, Hypercholesterolemia, Other (Subclavian steal syndrome, peripheral vascular disease, lower GI bleed, colonic polyposis, osteoarthritis) and Other (Ramsay's palsy)
ED Past Surgical History: Bowel resection (Partial colectomy), Orthopedic (Right total knee replacement) and Other (Splenectomy, right lumpectomy with chemotherapy and radiation 2015; multiple percutaneous femoral interventions; right femoral
endarterectomy)
Social History
Tobacco: Non-smoker
Alcohol: None
Drug: None
Living: with family
Phy Exam
Physical Exam
Physical Exam:
See HPI
Course
Vital Signs
Initial and Last Documented VS:
Initial Vital Signs
Temp Pulse Resp BP Pulse Ox
36.6 C 69 18 181/75 97
08/18/24 11:46 08/18/24 11:46 08/18/24 11:46 08/18/24 11:46 08/18/24 11:46
Last Documented Vital Signs
Temp Pulse Resp BP Pulse Ox
36.6 C 69 18 181/75 97
08/18/24 11:46 08/18/24 11:46 08/18/24 11:46 08/18/24 11:46 08/18/24 11:46
*Critical Care Note
Total Time (30-74mins, 75-104mins- exclusive of procedures): Not Applicable
ED Attending Note
-
Portions of this chart may have been created with voice recognition software.� Occasional wrong word or��sound alike� substitutions may have occurred due to the inherent limitations of voice recognition software.
Discharge Plan
Departure
Patient Disposition: Home (Routine Discharge)
Date of Disposition: 08/18/24
Time of Disposition: 12:43
Patient with high blood pressure during this ER visit?: Yes
Discharge Problem:
Peripheral vascular disease
Prescriptions:
No Action
amlodipine [Norvasc] 5 mg Tablet
5 mg PO DAILY
alprazolam [Xanax] 0.25 mg Tablet
0.25 mg PO DAILYPRN PRN (Reason: anixety)
pantoprazole [Protonix] 40 mg Tablet,Delayed Release (Dr/Ec)
40 mg PO DAILY
losartan 50 mg Tablet
50 mg PO BID
metoprolol tartrate [Lopressor] 50 mg Tablet
100 mg PO BID
anastrozole 1 mg Tablet
1 mg PO HS
cyanocobalamin (vitamin B-12) 1,000 mcg Tablet
1,000 mcg PO DAILY
aspirin 81 mg Tablet,Delayed Release (Dr/Ec)
81 mg PO DAILY
methimazole 10 mg Tablet
10 mg PO Q48H
cholecalciferol (vitamin D3) [Vitamin D3] 50 mcg (2,000 unit) Capsule
50 mcg PO DAILY
magnesium oxide 400 mg magnesium Tablet
400 mg PO BID
atorvastatin 80 mg Tablet
80 mg PO QPM Qty: 30 0RF
clopidogrel 75 mg Tablet
75 mg PO DAILY Qty: 20 0RF
Referrals:
Gabby Epstein MD [Non-Admitting Privileges] - As needed
Abel Infante MD [Active] - Keep scheduled appt
Activity Restrictions/Additional Instructions:
On exam, you have bounding femoral pulses. You have easily dopplerable popliteal pulses. The right (PT and DP (foot) pulses were easily dopplerable. The left PT and DP pulses were faintly dopplerable. I spoke to the on-call vascular surgeon,
Gretta, who just recommends follow-up with Dr. Infante. For now, I would recommend that you continue the aspirin and the Plavix. Return here if you have recurrent/worsening symptoms including pain in the foot. At your request, I have given you
the contact information for a neurologist, Dr. Epstein.
Interventions
Interventions:
*Risk Screen - Suicide Last Done: 08/18/24 11:46
*General Assessment Last Done: 08/18/24 11:46
*Neglect/Abuse Screening Last Done: 08/18/24 11:46
*ED- Fall Risk Assessment Last Done: 08/18/24 12:08
*ED COVID-19 Vaccine History Last Done: 08/18/24 12:08
ED-Peripheral Vascular Assessment Last Done: 08/18/24 12:08
Discharge Date and Time
Print Language: NEPALESE
== END 2024-08-18 13:03 | disposition home or self-care (01) ==
LOC: EMR 11:42
PROVIDERS: EMERGENCY PHYSICIAN Emergency Medicine; FAMILY PHYSICIAN Family Medicine
DX: I73.9 Peripheral vascular disease, unspecified (principal); I10 Essential (primary) hypertension; Z86.73 Personal history of transient ischemic attack (TIA), and cerebral infarction without residual deficits; Z79.82 Long term (current) use of aspirin; Z79.02 Long term (current) use of antithrombotics/antiplatelets
CPT/HCPCS: 99282

== ENCOUNTER 2024-11-16 13:57 | Emergency (ER) | payer OTHER, SELFPAY ==
[2024-11-16 14:00] VITALS: BP 161/77
--- NOTE | 2024-11-16 15:00 | ED.GENMED ---
History of Present Illness
General
Chief Complaint: Musculo-Skeletal Complaint
Source: patient and family
Time Seen by Provider: 11/16/24 14:50
History of Present Illness
History of Present Illness:
Note:
CHIEF COMPLAINT(S)
Fall with left wrist and hip pain.
HISTORY OF PRESENT ILLNESS
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 The incident occurred when she tripped over a
jacket sleeve while attempting to step up, resulting in a fall onto cement. She indicates the pain is located in the left wrist and near the left hip. The patient denies head injury, chest pain, neck pain, back pain, or abdominal pain. She reports
prior x-rays were performed on her hip. She has normal sensation in legs and knees, and no fractures suspected in the hips based on clinical assessment.
PHYSICAL EXAM
- General: Alert and oriented, no signs of head trauma, no hematoma, abrasions, or contusions.
- Neck: No midline tenderness, normal range of motion.
- Spine: No thoracic spine midline tenderness.
- Upper Extremities: Normal range of motion in bilateral shoulders, no clavicle tenderness bilaterally. Left elbow normal with normal range of motion. Swelling noted at the dorsal aspect of the first MCP joint on the left hand. Tenderness at the
distal ulna on the left with pain upon flexion, extension, pronation, and supination of the wrist.
- Lower Extremities: Normal range of motion bilaterally in hips and knees.
- Neurological: Peroneal nerve exam grossly intact, normal motor function.
PLAN
Review x-ray results of wrist and hip to determine any fractures or dislocations. Consider management of musculoskeletal pain and continue current anticoagulation with clopidogrel unless otherwise indicated by imaging. Treated with reassurance and
symptom monitoring for potential complications due to anticoagulation therapy.
DIFFERENTIAL DIAGNOSIS
The Differential Diagnosis includes, in no particular order and is not limited to:
- Wrist fracture
- Wrist sprain
- Hip contusion
- Hip fracture
- Soft tissue injury
- Hemarthrosis due to anticoagulation
- Subconscious hematoma
- Tendonitis
- Arthritis exacerbation
- Acute post-fall pain syndrome
Disposition:
SUMMARY OF ENCOUNTER
The patient is an 84-year-old female who presented with left wrist and hip pain following a fall. She is alert, oriented, and denies head injury or neurologic symptoms. Physical examination and independent review of x-rays confirm a non-displaced,
distal radius transverse fracture of the left wrist and no fractures in the hip.
DISPOSITION
The patient is advised for outpatient orthopedic follow-up.
ASSESSMENT
Non-displaced, distal radius transverse fracture of the left wrist.
PLAN
Place a volar splint on the left wrist and recommend RICE (rest, ice, compression, elevation). No indication for head CT at this time due to lack of head trauma or neurologic symptoms.
INDEPENDENT REVIEW OF LABS AND INTERPRETATION OF TESTS
- My independent interpretation of x-ray is a non-displaced, distal radius transverse fracture of the left wrist.
- My independent review of hip x-rays is no acute fractures
ADDITIONAL TESTING AND IMAGING CONSIDERED
Considered head CT, but not performed due to no signs of head trauma or neurologic symptoms.
MEDICATION RECONCILIATION
Patient continues on clopidogrel as anticoagulation therapy.
MEDICAL DECISION MAKING
1. Number & Complexity of Problems: Chronic conditions affecting care include a history of double stroke and current anticoagulation therapy. Differential diagnoses considered include wrist fracture and hip injuries.
2. Data Reviewed: Imaging tests reviewed include x-rays of the wrist and hip.
3. Risk: Considered CT due to anticoagulation therapy and fall, but deemed unnecessary given clinical stability and lack of head injury.
PATHOLOGIES TO CONSIDER
- Wrist fracture is confirmed.
- Consider hip contusion or soft tissue injury given fall history, though no fracture is confirmed on imaging.
Past History
Past History
ED Past Medical History: Cancer (Breast, right), GERD, HTN, Hypercholesterolemia, Other (Subclavian steal syndrome, peripheral vascular disease, lower GI bleed, colonic polyposis, osteoarthritis) and Other (Ramsay's palsy)
ED Past Surgical History: Bowel resection (Partial colectomy), Orthopedic (Right total knee replacement) and Other (Splenectomy, right lumpectomy with chemotherapy and radiation 2016; multiple percutaneous femoral interventions; right femoral
endarterectomy)
Social History
Tobacco: Non-smoker
Alcohol: None
Drug: None
Living: with family
Phy Exam
Physical Exam
Physical Exam:
.
Course
Orders/Labs/Results
Orders:
Orders
11/16/24 14:03
Hip, Left 2-3 Views [CR Hip - LT w/wo Pel 2-3 Vw*] Urgent
Comment:
Reason For Exam: fall
Include a pelvis x-ray?: Yes
Wrist, Left 3 Views CR [CR Wrist - Left Min 3 Views] Urgent
Comment:
Reason For Exam: fall
Vital Signs
Initial and Last Documented VS:
Initial Vital Signs
Temp Pulse Resp BP Pulse Ox
97.9 F 66 16 161/77 97
11/16/24 14:00 11/16/24 14:00 11/16/24 14:00 11/16/24 14:00 11/16/24 14:00
Last Documented Vital Signs
Temp Pulse Resp BP Pulse Ox
97.9 F 66 16 161/77 97
11/16/24 14:00 11/16/24 14:00 11/16/24 14:00 11/16/24 14:00 11/16/24 14:00
*Pulse Oximetry
SaO2: 97
Oxygen Mode of Delivery: Room air
Patient hypoxic: no
*Critical Care Note
Total Time (30-74mins, 75-104mins- exclusive of procedures): Not Applicable
ED Attending Note
-
Portions of this chart may have been created with voice recognition software.� Occasional wrong word or��sound alike� substitutions may have occurred due to the inherent limitations of voice recognition software.
Discharge Plan
Departure
Patient Disposition: Home (Routine Discharge)
Date of Disposition: 11/16/24
Time of Disposition: 15:02
Patient with high blood pressure during this ER visit?: Yes
Discharge Problem:
Distal radius fracture, left, Contusion
Instructions: Contusion (DC), Wrist Fracture (DC), Using Cold for Pain, Splint Care
Prescriptions:
No Action
amlodipine [Norvasc] 5 mg Tablet
5 mg PO DAILY
alprazolam [Xanax] 0.25 mg Tablet
0.25 mg PO DAILYPRN PRN (Reason: anixety)
pantoprazole [Protonix] 40 mg Tablet,Delayed Release (Dr/Ec)
40 mg PO DAILY
losartan 50 mg Tablet
50 mg PO BID
metoprolol tartrate [Lopressor] 50 mg Tablet
100 mg PO BID
anastrozole 1 mg Tablet
1 mg PO HS
cyanocobalamin (vitamin B-12) 1,000 mcg Tablet
1,000 mcg PO DAILY
aspirin 81 mg Tablet,Delayed Release (Dr/Ec)
81 mg PO DAILY
methimazole 10 mg Tablet
10 mg PO Q48H
cholecalciferol (vitamin D3) [Vitamin D3] 50 mcg (2,000 unit) Capsule
50 mcg PO DAILY
magnesium oxide 400 mg magnesium Tablet
400 mg PO BID
atorvastatin 80 mg Tablet
80 mg PO QPM Qty: 30 0RF
clopidogrel 75 mg Tablet
75 mg PO DAILY Qty: 20 0RF
Referrals:
Rimma Saravia DO [Family Provider]
Joyce Miller DO [Active, Orthopedics]
Activity Restrictions/Additional Instructions:
Please rest, ice and elevate your injured wrist. Please see orthopedics next 1 week for follow-up and reevaluation. Return Karon for numbness, tingling, discoloration of the fingers, worsening pain, changes in mentation, vomiting, headache or any
other concerns.
Interventions
Interventions:
*Risk Screen - Suicide Last Done: 11/16/24 14:00
*General Assessment Last Done: 11/16/24 14:28
*Neglect/Abuse Screening Last Done: 11/16/24 14:00
*ED- Fall Risk Assessment Last Done: 11/16/24 14:28
*ED COVID-19 Vaccine History Last Done: 11/16/24 14:28
ED-Musculoskeletal Assessment Last Done: 11/16/24 14:28
Discharge Date and Time
Print Language: CROATIAN
== END 2024-11-16 15:26 | disposition home or self-care (01) ==
LOC: EMR 13:57
PROVIDERS: EMERGENCY PHYSICIAN Emergency Medicine; FAMILY PHYSICIAN Family Medicine
DX: S52.502A Unspecified fracture of the lower end of left radius, initial encounter for closed fracture (principal); S70.02XA Contusion of left hip, initial encounter; W01.0XXA Fall on same level from slipping, tripping and stumbling without subsequent striking against object, initial encounter; I10 Essential (primary) hypertension
CPT/HCPCS: 99283; 29125; 73110; 73502

== ENCOUNTER → 2025-04-17 14:17 | Outpatient (REF) | payer OTHER, SELFPAY | LOC: RAD 14:17 | PROVIDERS: ATTENDING PHYSICIAN Surgery Vascular Surgery; FAMILY PHYSICIAN Family Medicine | DX: I65.23 Occlusion and stenosis of bilateral carotid arteries (principal) | CPT/HCPCS: 93880; 93922 ==